=== PATIENT | female | born 1995 ===

== ENCOUNTER 2020-05-23 12:10 | Emergency (ER) | payer SELFPAY ==
[~2020-05-23] VITALS: Ht 154.9 cm; Wt 100.0 kg
[2020-05-23 12:15] VITALS: Ht 154.9 cm; Wt 100.0 kg
[2020-05-23] MEDS ORDERED: VOLTAREN75 MG PO (13:30)
[2020-05-23] MEDS ORDERED: VIBRAMYCIN 100100 MG PO (13:30)
[2020-05-23 13:55] VITALS: BP 132/85
== END 2020-05-23 13:55 | disposition home or self-care (01) ==
LOC: D.ER 12:10
DX: L03.317 Cellulitis of buttock (principal)